=== PATIENT | male | born 1945 | race Caucasian/White ===

== ENCOUNTER → 2018-01-22 | Outpatient (CLI) | payer OTHER | LOC: M RAD 10:47 | DX: J44.9 Chronic obstructive pulmonary disease, unspecified (principal); R91.1 Solitary pulmonary nodule; I70.0 Atherosclerosis of aorta; I25.10 Atherosclerotic heart disease of native coronary artery without angina pectoris | CPT/HCPCS: 71250 ==

== ENCOUNTER → 2018-07-22 | Outpatient (CLI) | payer MEDICARE ==
--- NOTE | 2018-07-22 18:38 | REP ---
CT chest without contrast: History: Solitary pulmonary nodule. Comparison chest CT study January 22, 2018. CT findings: Diffuse fatty infiltration of the liver is seen. Gallstones are noted in the gallbladder. No adrenal lesion is seen. No pleural or pericardial effusion is seen. There is coronary artery and vascular calcification. No hilar or mediastinal mass or adenopathy is observed. A area of subpleural fibrosis is seen in the right lower lobe superior segment unchanged from the comparison study January 22, 2018. On page 65 of 105 in series 201 today's study, there is an oval-shaped 7 mm noncalcified nodule in the right lower lobe which is more conspicuous because of slice position but unchanged when compared with the January 22, 2018 study. No other significant pulmonary nodule is appreciated. No bony destructive lesion is seen. No infiltrate is noted. Impression: 1. 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 2. Fatty infiltration of the liver and cholelithiasis again seen. Electronically Signed by Kulwinder Avila MD 07/23/2018 09:00 A
== END ==
LOC: M RAD 16:12
PROVIDERS: ATTEND Internal Medicine Pulmonary Disease
DX: R91.1 Solitary pulmonary nodule (principal); J44.9 Chronic obstructive pulmonary disease, unspecified; K76.0 Fatty (change of) liver, not elsewhere classified; K80.20 Calculus of gallbladder without cholecystitis without obstruction

== ENCOUNTER → 2019-07-30 | Outpatient (CLI) | payer MEDICARE | LOC: M RAD 10:17 | PROVIDERS: ATTEND Internal Medicine Pulmonary Disease | DX: R91.1 Solitary pulmonary nodule (principal) ==

== ENCOUNTER → 2021-06-01 | Outpatient (CLI) | payer MEDICARE | LOC: M RAD 12:26 | PROVIDERS: ATTEND Family Medicine | DX: J44.9 Chronic obstructive pulmonary disease, unspecified (principal); R91.1 Solitary pulmonary nodule ==

== ENCOUNTER → 2024-01-07 | Outpatient (CLI) | payer MEDICARE ==
[~2024-01-07] MED LIST: ASPI81CH33 PO; B-12100010 PO; BUDE10.7 IH; CARV3.12; D31000CA4 PO; FENO160T10; JARD1TAB3 PO; LOSA25TA13; METF10004 PO; MULT-6 PO; PIOG1TAB37; SIMV40TA20
== END ==
LOC: M RAD 08:56
PROVIDERS: ATTEND Dietitian, Registered
DX: D61.818 Other pancytopenia (principal)

== ENCOUNTER → 2024-01-11 | Outpatient (CLI) | payer MEDICARE | LOC: M RAD 14:27 | PROVIDERS: ATTEND Internal Medicine Hematology & Oncology | DX: D72.819 Decreased white blood cell count, unspecified (principal); M47.9 Spondylosis, unspecified; M16.0 Bilateral primary osteoarthritis of hip ==

== ENCOUNTER → 2024-01-15 | Outpatient (REF) | payer MEDICARE ==
[2024-01-15 12:37] LABS: TOTAL VOLUME, URINE 3075 ML
[2024-01-15 12:51] LABS: URINE TOTAL PROTEIN < 6.0 MG/DL (0-14)
[2024-01-16 13:23] LABS: PROTEIN CREAT 24H RATIO 154 mg/g creat (<100); T PROTEIN CREAT 24HR RATIO 0.154 (<0.100); Urine Total Protein 185 mg/24 h (<150)
== END ==
LOC: M LAB REF 11:26
PROVIDERS: ATTEND Internal Medicine Hematology & Oncology
DX: D72.819 Decreased white blood cell count, unspecified (principal)

== ENCOUNTER → 2024-05-01 | Outpatient (CLI) | payer MEDICARE ==
[~2024-05-01] MED LIST changes: +LIDOCAINE 1% MDV 20ML VIAL As Ordered ONE
[2024-05-01 08:26] VITALS: TEMP 98.2
[2024-05-01 08:56] LABS: BASO % 0.9 % (0.0-1.0); EOS # 0.1 10^3/uL (0.0-0.5); HEMATOCRIT 44.7 % (42.0-52.0); HEMOGLOBIN 15.9 g/dl (13.5-17.5); LYMPH # 0.9 10^3/uL (1.5-5.0); LYMPH % 26.1 % (24.0-44.0); MEAN CORPUSCULAR HEMOGLOBIN 32.6 pg (27.0-33.0); MEAN CORPUSCULAR HGB CONC 35.6 g/dl (32.0-36.5); MEAN CORPUSCULAR VOLUME 91.6 fl (80.0-96.0); MONO # 0.4 10^3/uL (0.0-0.8); MONO % 11.5 % (2.0-8.0); NEUTROPHILS # 2.1 10^3/uL (1.5-8.5); NEUTROPHILS % 59.2 % (36.0-66.0); PLATELET COUNT, AUTOMATED 118 10^3/uL (150-450); RED BLOOD COUNT 4.88 10^6/uL (4.30-6.10); WHITE BLOOD COUNT 3.5 10^3/uL (4.0-10.0)
[2024-05-01 09:00] VITALS: BP 146/83; O2SAT 98
== END ==
LOC: M IRPRO 08:21
PROVIDERS: ATTEND Internal Medicine Hematology & Oncology
DX: D69.6 Thrombocytopenia, unspecified (principal); D72.819 Decreased white blood cell count, unspecified

== ENCOUNTER → 2024-11-12 | Outpatient (CLI) | payer MEDICARE ==
[~2024-11-12] MED LIST changes: -LIDOCAINE 1% MDV 20ML VIAL As Ordered ONE
== END ==
LOC: M RAD 09:31
PROVIDERS: ATTEND Specialist
DX: D47.2 Monoclonal gammopathy (principal); R16.1 Splenomegaly, not elsewhere classified; K76.0 Fatty (change of) liver, not elsewhere classified; N28.1 Cyst of kidney, acquired; K80.20 Calculus of gallbladder without cholecystitis without obstruction